=== PATIENT | male | born 1955 | race Caucasian/White ===

== ENCOUNTER 2019-07-26 14:14 | Emergency (ER) | payer OTHER ==
[2019-07-26] MEDS ORDERED: ASPIRIN 81 MG TABLET, CHEWABLE PO ONE (14:27)
--- NOTE | 2019-07-26 14:29 | ER Document Report ---
ED Medical Screen (RME) - General Mode of Arrival: Ambulatory Information source: Patient TRAVEL OUTSIDE OF THE [place] IN LAST 30 DAYS: No <FAUSTINO PEREZ - Last Filed: 07/26/19 14:29> <JUAN SOLORIO - Last Filed: 07/26/19 18:40> - General Chief Complaint: Chest Pain Stated Complaint: CHEST PAIN Time Seen by Provider: 07/26/19 14:26 Notes: 64-year-old male presents with complaints of midsternal chest pain for the past 3 to 4 days. Reports he thought it was heartburn but it did not away worsened with food. Now he complains of left arm pain. Denies history of cardiac disease. Denies history of heart attack. I have greeted and performed a rapid initial assessment of this patient. A comprehensive ED assessment and evaluation of the patient, analysis of test results and completion of the medical decision making process will be conducted by additional ED providers. (FAUSTINO PEREZ) - Related Data Allergies/Adverse Reactions: Penicillins Allergy (Verified 06/15/14 14:47) Past Medical History Past Surgical History: Reports: Hx Orthopedic Surgery - B knee - Immunizations Hx Diphtheria, Pertussis, Tetanus Vaccination: Yes <FAUSTINO PEREZ - Last Filed: 07/26/19 14:29> Physical Exam - Vital signs Vitals: Temp 98.2 F 07/26/19 14:32 Course - Laboratory Result Diagrams: 07/26/19 14:30 07/26/19 14:30 - Diagnostic Test Radiology reviewed: Image reviewed, Reports reviewed <JUAN SOLORIO - Last Filed: 07/26/19 18:40> - Re-evaluation Re-evalutation: 07/26/19 18:36 The patient was seen and evaluated by me with the mid level provider. I had been given the patient's EKG to sign while I was intubating another patient. The EKG was concerning for a STEMI so I told nursing staff to bring the patient back to a room immediately and have one of the midlevel providers see the patient. Once I was done with the intubation I evaluated the patient and determined his story was indeed concerning for ACS (4 days of chest pain with radiation to left arm which was worse today causing nausea and vomiting). EKG showed ST elevated in inferior leads with possible formation of q waves in same leads. Patient also had reciprocal changes in V2-V4. Midlevel provider was instructed to call [facility] for STEMI transfer since no STEMI care available here at [place]. Patient had been given Aspirin and Nitro and after speaking with Fede Li the Production Cell Leader requested a Heparin Bolus only and Ticagrelor. Patient emergently transferred to [facility]. (JUAN SOLORIO) - Vital Signs Vital signs: Temp Pulse Resp BP Pulse Ox 98.2 F 81 19 106/68 100 07/26/19 15:15 07/26/19 14:34 07/26/19 15:11 07/26/19 15:11 07/26/19 15:16 - Laboratory Laboratory results interpreted by dc: 07/26/19 14:30 Sodium 136.6 L Critical Care Note - Critical Care Note Total time excluding time spent on procedures (mins): 40 <JUAN SOLORIO - Last Filed: 07/26/19 18:40> Doctor's Discharge <FAUSTINO PEREZ - Last Filed: 07/26/19 14:29> <JUAN SOLORIO - Last Filed: 07/26/19 18:40> - Discharge Clinical Impression: STEMI (ST elevation myocardial infarction) Condition: Critical Disposition: [facility]
[2019-07-26] MEDS ORDERED: NITROGLYCERIN 0.4 MG/TAB 25 TAB/BOTTLE SL ONE (14:36)
--- NOTE | 2019-07-26 14:41 | ER Document Report ---
ED Cardiac - General Chief Complaint: Chest Pain Stated Complaint: CHEST PAIN Time Seen by Provider: 07/26/19 14:26 Mode of Arrival: Ambulatory Notes: Patient is a 64-year-old male who presents to the emergency department with a chief complaint of chest pain. Patient states that he had chest pain about 4 to 5 days ago, but got progressively worse today. He ended up vomiting today and chest pain intensified. Admits to left arm pain that started today. Patient smokes a pack of cigarettes a day. TRAVEL OUTSIDE OF THE [place] IN LAST 30 DAYS: No - Related Data Allergies/Adverse Reactions: Penicillins Allergy (Verified 06/15/14 14:47) Past Medical History - General Information source: Patient - Social History Smoking Status: Current Every Day Smoker Family History: Reviewed & Not Pertinent Past Surgical History: Reports: Hx Orthopedic Surgery - B knee - Immunizations Hx Diphtheria, Pertussis, Tetanus Vaccination: Yes Review of Systems - Review of Systems Notes: REVIEW OF SYSTEMS: CONSTITUTIONAL : Denies recent illness. Denies recent unintentional weight loss. Denies fever, chills, or sweats. EENT: Denies eye, ear, throat, or mouth pain, discharge, or symptoms. Denies nasal or sinus congestion. CARDIOVASCULAR: See HPI. RESPIRATORY: Denies shortness of breath, cough, congestion, difficulty breathing, or wheezing. GASTROINTESTINAL: Denies nausea, vomiting, and diarrhea. Denies abdominal pain. Denies constipation. GENITOURINARY: Denies difficulty urinating, burning, blood in urine, urgency or frequency. MUSCULOSKELETAL: Denies neck and back pain. Denies joint pain or swelling. SKIN: Denies rash, itchiness, or lesions HEMATOLOGIC : Denies easy bruising or bleeding. LYMPHATIC: Denies swollen, painful, enlarged glands. NEUROLOGICAL: Denies no numbness or tingling denies weakness. Denies headache. Denies altered mental status. Denies alteration in speech. PSYCHIATRIC: Denies stress, anxiety, alteration in sleep patterns, or depression. All other systems reviewed and negative. Physical Exam - Vital signs Vitals: Temp 98.2 F 07/26/19 14:32 - Notes Notes: PHYSICAL EXAMINATION: GENERAL: Appears well, healthy, well-nourished, no acute distress. HEAD: Normocephalic, atraumatic. EYES: PERRL, conjunctiva normal, all extraocular movements intact, sclera nonicteric ENT: Moist mucous membranes. NECK: Supple, no noticeable swelling, redness, rash. Normal range of motion. LUNGS: Equal breath sounds bilaterally and clear to auscultation. No wheezes rales or rhonchi. CARDIOVASCULAR: S1-S2, regular rate, regular rhythm. Radial pulses 2+, normal. ABDOMEN: Normoactive bowel sounds. Soft, nontender, no guarding, no rebound tenderness, and no masses palpated. EXTREMITIES: Normal strength and range of motion, no pitting or edema. No cyanosis. NEUROLOGICAL: Moves all extremities upon command. Strength 5/5 in all extremities. PSYCH: Normal mood, normal affect. SKIN: Warm, dry. No rash, lesions, ulcerations noted. Normal skin turgor. Course - Re-evaluation Re-evalutation: 07/26/19 14:42 Dr. Menard has evaluated the patient and reviewed EKG. Patient has inferior lead EKG changes. Patient will be started on a heparin drip, given nitro, and aspirin. 07/26/19 14:[address] Salazar, the entry level software developer integration assistant at [facility]. 07/26/19 15:[address] Salazar again. Patient will be transferred via air to [facility]. 07/26/19 15:14 Flight team is at bedside. Patient is stable for transfer to [facility]. - Vital Signs Vital signs: Temp Pulse Resp BP Pulse Ox 98.2 F 81 19 106/68 100 07/26/19 15:15 07/26/19 14:34 07/26/19 15:11 07/26/19 15:11 07/26/19 15:16 - Laboratory Result Diagrams: 07/26/19 14:30 07/26/19 14:30 Laboratory results interpreted by me: 07/26/19 14:30 Sodium 136.6 L - EKG Interpretation by Me Additional EKG results interpreted by me: 07/26/19 Sinus rhythm with a PVC. Inferior lead ST depression in V2, V3, and V4. Possible elevations in leads II and III. Reviewed by both myself and Dr. Menard also discussed with Dr. Ochoa, the entry level software developer on-call. Critical Care Note - Critical Care Note Total time excluding time spent on procedures (mins): 25 Comments: Critical care time spent obtaining history from patient or surrogate, discussions with consultants, development of treatment plan with patient or surrogate, evaluation of patient's response to treatment, examination of patient, ordering and performing treatments and interventions, ordering and review of laboratory studies, re-evaluation of patient's condition, ordering and review of radiographic studies and review of old charts Discharge - Discharge Clinical Impression: STEMI (ST elevation myocardial infarction) Qualifiers: Involved coronary artery: unspecified coronary artery Qualified Code(s): I21.3 - ST elevation (STEMI) myocardial infarction of unspecified site Condition: Critical Disposition: [facility] Admitting Provider: Dr. Salazar
[2019-07-26 14:43] LABS: ABSOLUTE EOSINOPHILS # (AUTO) 0.1 10^3/uL (0.0-0.6); ABSOLUTE LYMPHOCYTES (AUTO) 1.5 10^3/uL (0.5-4.7); ABSOLUTE MONOCYTES (AUTO) 0.7 10^3/uL (0.1-1.4); ABSOLUTE NEUT (AUTO) 6.6 10^3/uL (1.7-8.2); BASOPHILS % (AUTO) 0.5 % (0-2); EOSINOPHILS % (AUTO) 1.2 % (0-6); HEMATOCRIT 45.6 % (37.9-51.0); HEMOGLOBIN 15.8 g/dL (13.5-17.0); LYMPHOCYTES % (AUTO) 16.5 % (13-45); MEAN CORPUSCULAR HEMOGLOBIN 31.8 pg (27.0-33.4); MEAN CORPUSCULAR HGB CONC 34.6 g/dL (32.0-36.0); MEAN CORPUSCULAR VOLUME 92 fl (80-97); MONOCYTES % (AUTO) 7.6 % (3-13); PLATELET COUNT 218 10^3/uL (150-450); RED BLOOD COUNT 4.96 10^6/uL (4.35-5.55); RED CELL DISTRIBUTION WIDTH 13.8 % (11.5-14.0); SEGMENTED NEUTROPHILS % (AUTO) 74.2 % (42-78); TOTAL CELLS COUNTED % (AUTO) 100 %; WHITE BLOOD COUNT 8.9 10^3/uL (4.0-10.5)
[2019-07-26] MEDS ORDERED: HEPARIN SODIUM,PORCINE/D5W 25,000 UNIT/250 ML RTUINJ IV PRN ×2 (14:43→14:57)
[2019-07-26] MEDS ORDERED: HEPARIN SOD (PORCINE) 1,000 UNIT/ML 10 ML VIAL IV ONE (14:43)
[2019-07-26] MEDS ORDERED: NORMAL SALINE 1000 ML 1,000 ML IV ONE (14:48)
[2019-07-26] MEDS ORDERED: HEPARIN SODIUM,PORCINE/D5W 25,000 UNIT/250 ML RTUINJ IV ONE (14:49)
--- NOTE | 2019-07-26 14:51 | RADIOLOGY REPORT (SQ) ---
EXAM DESCRIPTION: CHEST SINGLE VIEW IMAGES COMPLETED DATE/TIME: 07/26/2019 2:38 pm REASON FOR STUDY: cp COMPARISON: None. EXAM PARAMETERS: NUMBER OF VIEWS: One view. TECHNIQUE: Single frontal radiographic view of the chest acquired. RADIATION DOSE: NA LIMITATIONS: None. FINDINGS: LUNGS AND PLEURA: No opacities, masses or pneumothorax. No pleural effusion. MEDIASTINUM AND HILAR STRUCTURES: No masses. Contour normal. HEART AND VASCULAR STRUCTURES: Heart normal in size. Normal vasculature. BONES: No acute findings. HARDWARE: None in the chest. OTHER: No other significant finding. IMPRESSION: NO ACUTE RADIOGRAPHIC FINDING IN THE CHEST. TECHNICAL DOCUMENTATION: JOB ID: [id number] 2010 [employer]- All Rights Reserved Reading location - IP/workstation name: [email or web address]
[2019-07-26 15:02] LABS: ALBUMIN 4.3 g/dL (3.5-5.0); ALKALINE PHOSPHATASE 74 U/L (38-126); ANION GAP 5 (5-19); ASPARTATE AMINO TRANSFERASE 22 U/L (17-59); BILIRUBIN,TOTAL 0.4 mg/dL (0.2-1.3); BLOOD UREA NITROGEN 19 mg/dL (7-20); CARBON DIOXIDE 29 mmol/L (22-30); CHLORIDE 103 mmol/L (98-107); GLUCOSE 107 mg/dL (75-110); POTASSIUM 4.1 mmol/L (3.6-5.0); TOTAL PROTEIN 7.1 g/dL (6.3-8.2)
[2019-07-26] MEDS ORDERED: TICAGRELOR 90 MG TABLET PO ONE (15:04)
[2019-07-26 15:10] LABS: INTERNATIONAL RATION (INR) 0.94; PROTHROMBIN TIME 12.5 SEC (11.4-15.4)
[2019-07-26 15:11] LABS: PARTIAL THROMBOPLASTIN TIME 30.5 SEC (23.5-35.8)
[2019-07-26 15:15] VITALS: BP 106/68
[2019-07-26] MEDS ORDERED: NITROGLYCERIN 0.4 MG/TAB 25 TAB/BOTTLE ONE (16:00)
[2019-07-26] MEDS ORDERED: HEPARIN SOD (PORCINE) 1,000 UNIT/ML 10 ML VIAL IV PRN ×2 (17:45→17:57)
--- NOTE | 2019-07-26 21:35 | EKG REPORT ---
SEVERITY:- ABNORMAL ECG - SINUS RHYTHM VENTRICULAR PREMATURE COMPLEX PROBABLE LEFT ATRIAL ABNORMALITY PROBABLE INFERIOR INFARCT, AGE INDETERMINATE CONSIDER POSTERIOR WALL INVOLVEMENT ST DEPRESSION, CONSIDER ISCHEMIA, ANT LEADS : Confirmed by: Ravi Arroyo MD 26-Jul-2019 21:33:53
== END 2019-07-26 15:24 | disposition short-term general hospital (02) ==
LOC: ER 14:14
DX: I21.3 ST elevation (STEMI) myocardial infarction of unspecified site (principal); R07.9 Chest pain, unspecified; R11.10 Vomiting, unspecified; M79.602 Pain in left arm; I49.3 Ventricular premature depolarization; F17.210 Nicotine dependence, cigarettes, uncomplicated; Z88.0 Allergy status to penicillin
CPT/HCPCS: 93005; 99285; 96374; 36415; 85025; 85610; 85730; 80053; 84484; 71045; 93010; J1644; J7030; J3490